=== PATIENT | female | born 1955 | race Caucasian/White ===

== ENCOUNTER 2024-09-18 09:32 | Outpatient (AMB) | payer MEDICAID, SELFPAY ==
[2024-09-18 09:45] VITALS: BP 123/64; PULSE 78; RESP 18; TEMP 36; O2SAT 99; BMI 26.6
--- NOTE | 2024-09-18 09:45 | GYNCLNT_ITS ---
Vital Signs 09/18/24 09:45 Height 1.52 m Height Method Stated Weight 61.745 kg Weight Measurement Method Standing Scale BMI 26.6 BP 123/64 Blood Pressure Source Automatic Cuff Blood Pressure Location Left Upper Arm Position Sitting Respiration 18 Pulse 78 Pulse Source Monitor Temp 96.8 F Temp Source Oral Pulse Oximetry (%) 99 Oxygen Delivery Method Room Air Allergies/Home Meds Allergies & Medications Allergies No Known Allergies Allergy (Verified 09/18/24 09:46) Medication Reconciliation [id number]-[id number]-[id number] 500 mg-60 mg-15 mg tablet (Midol Complete) 2 tab PO Q6H PRN Pain 11/04/20 [History Confirmed 09/18/24] cholecalciferol (vitamin D3) 50 mcg (2,000 unit) capsule (Vitamin D3) 50 mcg PO QDAY 11/04/20 [History Confirmed 09/18/24] cyclobenzaprine 5 mg tablet 5 mg PO HS 11/04/20 [History Confirmed 09/18/24] diclofenac potassium 50 mg tablet 50 mg PO BID 11/04/20 [History Confirmed 09/18/24] multivitamin,yr-mebp-pqshlcwh 1 tab PO DAILY 11/04/20 [History Confirmed 09/18/24] omeprazole 20 mg tablet,delayed release 20 mg PO QDAY 11/04/20 [History Confirmed 09/18/24] ondansetron 4 mg disintegrating tablet 4 mg PO Q6H PRN Nausea 11/04/20 [History Confirmed 09/18/24] vitamin B complex 1 cap PO QDAY 11/04/20 [History Confirmed 09/18/24] Intake Visit Data Collection New Patient or Established: Established Patient (seen at [facility] within 3 years) Reason for Visit:: SPEEDY Seen by Clinical Staff ONLY (RN/MA): No Thinner Sprayer Required: No Do You Feel Safe at Home: Yes Authorities Contacted: N/A PCP or OBGYN visit in last 3 months: No Hx Now: No Are you currently on any form of Control: No Pain Present Currently: No Pain Scale Used: York-Jhaveri/Numerical Pain scale:: 0 Smoking Status Smoking Status: Never smoker 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 1. Little interest or pleasure in doing things: not at all 2. Feeling down, depressed, or hopeless: not at all Total score: 0 PHQ-9 3. Trouble falling or staying asleep, or sleeping too much: Not at all 4. Feeling tired or having little energy: Not at all 5. Poor appetite or overeating: Not at all 6. Feeling bad about yourself - or that you are a failure or have let yourself or your family down: Not at all 7. Trouble concentrating on things, such as reading the newspaper or watching television: Not at all 8. Moving or speaking so slowly that other people could have noticed? - Or the opposite - being so fidgety or restless that you have been moving around a lot more than usual: not at all 9. Thoughts that you would be better off or of hurting yourself in some way: Not at all Total score: 0 If you checked off any problems, how difficult have these problems made it for you to do your work, take care of things at home, or get along with other people?: not difficult at all Source: Developed by Drs. Miguel Angel Rondon, Dasha Chung, Franco Brito and colleagues, with an educational florencio from [employer]. Depression screen completed yes Social History Living Situation History Marital Status: Lives With: Family Housing: House Housing Other:: pt lives with her dtr Tobacco History Smoking Status: Never smoker Alcohol History Alcohol Intake: Current Alcohol Intake Frequency: holidays/special occasions only Domestic Abuse History Do You Feel Safe at Home: Yes Past Medical History Past Medical History Have you ever been diagnosed with any of the following: Neurological Problems Seizures: No Cardiology Problems Congestive Heart Failure: No Valvular Heart Disease: No Edema: No Cellulitis: No Varicose Veins: No Respiratory Problems Chronic Obstructive Pulmonary Disease (COPD): No Tuberculosis: No Pulmonary Embolism: No Sleep Apnea: No Stomache/Intestinal Problems Hepatitis: No Gastroesophageal Reflux Disease: Yes (TAKES PO PRN) Genital/Urinary Problems Renal Disease: No Reproductive Problems Previous Pregnancies: Yes (X9) Endocrine Problems Diabetes Mellitus Type 1: No Diabetes Mellitus Type 2: No Other Problems Hospitalization: No Shingles: No Falls: No Blood Transfusions: No Blood Transfusion Reaction: No Anesthesia Reactions: No Chemotherapy: No Radiation Therapy: No MRSA: No Chicken Pox: No Measles: No Mumps: No Cancer: No Surgical History Pacemaker: No History of Present Illness HPI Narrative Chief Complaint Mobile something like a little ball or pouch in vaginal area within the last week, urinary leakage and difficulty stopping urination, redness in belly button, numbness in one leg History of Present Illness Radhika Rivas Sr. presents with concerns of a pelvic bulge and urinary symptoms. Within the last week, she noticed a little ball or pouch when touching herself, which she was able to tuck back in. Prior to this, she experienced a little shock sensation. The patient reports urinary leakage and difficulty urinating. She describes feeling like she urinated but couldn't stop, which she initially attributed to a previous surgery. Associated symptoms include redness in the belly button and numbness in one leg. The patient denies increased leakage with coughing, sneezing, or laughing, stating it just happens. Additionally, the patient mentions concerns about cholesterol management and yearly exams, which have been previously managed by another provider named Juan R. Medical History - Hypercholesterolemia, managed with regular check-ups Surgical History - Unspecified surgery in the recent past, possibly related to urinary issues Social History - Living Situation: Lives with mother Review of Systems Skin: Positive for redness in the belly button. Genitourinary: Positive for urinary leakage, difficulty stopping urination. Negative for increased urinary leakage with coughing, sneezing, or laughing. Musculoskeletal: Positive for feeling a little ball or pouch in pelvic area. Neurological: Positive for numbness in one leg, feeling of little shock prior to noticing bulge. Review of Systems Review of Systems Systems Reviewed: All systems reviewed, normal except as documented Exam General Limitations: no limitations General Appearance: alert, in no apparent distress, comfortable, cooperative, healthy appearing, well developed and well groomed Head Head exam: atraumatic, normocephalic and normal inspection Chest Chest inspection: Present normal inspection and symmetric chest wall rise Abdominal Abdominal exam: Present soft and normal bowel sounds Abdominal tenderness: Present severe (Redness noted in the belly button.) External exam: Present other (Palpation reveals bladder prolapse. Uterus not descending. Patient reports pain on palpation of prolapsed area.) Psych Psychiatric exam: Present normal affect and normal mood Skin Skin exam: Present warm, dry, intact and normal color Assessment & Plan Diagnosis / Problem List (1) Encounter for screening mammogram for malignant neoplasm of breast: Status: Acute (2) SPEEDY (stress urinary incontinence, female): Status: Acute (3) Menopause: Status: Acute Plan Radhika Rivas Sr. presents with a recent onset of a palpable vaginal bulge, urinary symptoms, and associated sensations, suggesting pelvic organ prolapse. Suspected Bladder Prolapse (Cystocele) Assessment: Patient reports feeling a little ball or pouch in the vaginal area within the last week, which she was able to manually reduce. She also experienced urinary symptoms, including a sensation of incomplete bladder emptying and difficulty stopping urination. On examination, a bladder prolapse was identified, with the prolapsed portion extending below the level of the urethra. The uterus was not prolapsed. These findings are consistent with a cystocele, likely grade 2 or 3 based on the ability to palpate the prolapse at the vaginal introitus. Plan: - Refer to urology (Dr. Herr) for urodynamic testing to assess bladder function and determine the specific area of weakness - Schedule vaginal surgery for cystocele repair - Procedure to be performed jointly with Dr. Herr - Surgical plan includes vaginal incision, tissue trimming, and reinforcement of vaginal wall support using dissolvable sutures (no mesh) - Informed consent: Discussed risks, benefits, and alternatives with patient - Order pelvic ultrasound to further evaluate pelvic organ anatomy - Obtain urine culture to rule out urinary tract infection - Schedule follow-up after completion of diagnostic studies to review results and finalize surgical plan Preventive Care Assessment: Patient is due for routine preventive care, including breast cancer screening. Plan: - Generate order for screening mammogram - Patient to schedule mammogram appointment at facility downstairs - Coordinate with Dr. Pete for ongoing cholesterol management and yearly physical exams Abdominal and Leg Symptoms Assessment: Patient reports redness in the umbilical region and numbness in one leg. These symptoms require further evaluation to determine their etiology and potential relationship to the pelvic organ prolapse or other underlying conditions. Plan: - Perform focused physical examination of the abdomen and legs at next visit - Consider additional imaging or referrals based on examination findings Advanced Care Planning Advance care planning discussed with:: patient Office Procedures OB Clinic LOC & Office Proc's Nursing/Assessment Patient Status: Established Patient OB Clinic Nursing Assessment: BP Monitoring, Medication Reconciliation, Update PMH in EMR and Vital Signs OB Clinic Coordination of Care: Consent,records obtained, informed consent, Education Simp Pt/Fam, Lab and Imaging orders and Staff clarify orders Miscellaneous Interventions: Pelvic/Pap Smear Set up Established Patient Charge Established Patient Point Assignment: 110 Established Patient Point Charge: EP Level 3 (80-115)
== END 2024-09-18 10:07 | disposition home or self-care (01) ==
LOC: HODSOBC 09:32
PROVIDERS: PCP Obstetrics & Gynecology; Referring Provider Obstetrics & Gynecology; Supervising Provider Obstetrics & Gynecology; Visit Provider Obstetrics & Gynecology
DX: Z12.31 Encounter for screening mammogram for malignant neoplasm of breast (principal); N39.3 Stress incontinence (female) (male); Z78.0 Asymptomatic menopausal state; E78.00 Pure hypercholesterolemia, unspecified
CPT/HCPCS: 99213; G0463

== ENCOUNTER 2025-05-29 09:49 | Outpatient (AMB) | payer MEDICAID, SELFPAY ==
--- NOTE | 2025-05-29 10:08 | GYNCLNT_ITS ---
Vital Signs 05/29/25 10:09 Height 1.52 m Height Method Stated Weight 62.256 kg Weight Measurement Method Standing Scale BMI 26.9 BP 127/75 Blood Pressure Source Automatic Cuff Blood Pressure Location Left Upper Arm Position Sitting Respiration 18 Pulse 68 Pulse Source Monitor Temp 97.3 F Temp Source Temporal Artery Scan Pulse Oximetry (%) 95 Oxygen Delivery Method Room Air Allergies/Home Meds Allergies & Medications Allergies No Known Allergies Allergy (Verified 05/29/25 11:20) Medication Reconciliation zweaswkjbvgun-noheewsk-qykchfbyry 500 mg-60 mg-15 mg tablet (Midol Complete) 2 tab PO Q6H PRN Pain 11/04/20 [History Confirmed 05/29/25] cholecalciferol (vitamin D3) 50 mcg (2,000 unit) capsule (Vitamin D3) 50 mcg PO QDAY 11/04/20 [History Confirmed 05/29/25] cyclobenzaprine 5 mg tablet 5 mg PO HS 11/04/20 [History Confirmed 05/29/25] diclofenac potassium 50 mg tablet 50 mg PO BID 11/04/20 [History Confirmed 05/29/25] multivitamin,vp-smbn-vhptccaj 1 tab PO DAILY 11/04/20 [History Confirmed 05/29/25] omeprazole 20 mg tablet,delayed release 20 mg PO QDAY 11/04/20 [History Confirmed 05/29/25] ondansetron 4 mg disintegrating tablet 4 mg PO Q6H PRN Nausea 11/04/20 [History Confirmed 05/29/25] vitamin B complex 1 cap PO QDAY 11/04/20 [History Confirmed 05/29/25] Intake Visit Data Collection New Patient or Established: Established Patient (seen at [facility] within 3 years) Reason for Visit:: FOLLOW UP Seen by Clinical Staff ONLY (RN/MA): No Superintendent Nonselling Required: No Do You Feel Safe at Home: Yes Authorities Contacted: N/A PCP or OBGYN visit in last 3 months: Yes Date of Last PCP or OBGYN visit: 09/18/24 Hx Now: No Are you currently on any form of Control: No Pain Present Currently: No Pain Scale Used: York-Jhaveri/Numerical Pain scale:: 0 Smoking Status Smoking Status: Never smoker Immunizations Flu Vaccine in the Last 12 Months: No Flu Vaccine Exclusion Criteria: No Exclusion Criteria MEDICAL ADMINISTRATIVE: Past Medical History Past Medical History: No Hx Neurological Disorders, No Hx Cardiac Disorders, No Hx Cancer, No Hx Blood Disorders, Yes Hx Gastrointestinal Disorders, No Hx Renal Disease, No Hx Diabetes Mellitus Type 1 and No Hx Diabetes Mellitus Type 2 Questionnaires Covid-19 Vaccine Questionnaire Has patient been vacinated for Covid-19 Have you been vacinated for Covid-19: No PHQ-9 PHQ-2 Over the last 2 weeks, how often have you been bothered by any of the following problems? 1. Little interest or pleasure in doing things: not at all 2. Feeling down, depressed, or hopeless: not at all Total score: 0 PHQ-9 3. Trouble falling or staying asleep, or sleeping too much: Not at all 4. Feeling tired or having little energy: Not at all 5. Poor appetite or overeating: Not at all 6. Feeling bad about yourself - or that you are a failure or have let yourself or your family down: Not at all 7. Trouble concentrating on things, such as reading the newspaper or watching television: Not at all 8. Moving or speaking so slowly that other people could have noticed? - Or the opposite - being so fidgety or restless that you have been moving around a lot more than usual: not at all 9. Thoughts that you would be better off or of hurting yourself in some way: Not at all Total score: 0 If you checked off any problems, how difficult have these problems made it for you to do your work, take care of things at home, or get along with other people?: not difficult at all Source: Developed by Drs. Miguel Angel Rondon, Dasha Chung, Franco Brito and colleagues, with an educational florencio from [employer]. Depression screen completed yes Social History Living Situation History Marital Status: Lives With: Family Housing: House Housing Other:: pt lives with her dtr Tobacco History Smoking Status: Never smoker Second Hand Smoke Exposure: No Alcohol History Alcohol Intake: Current Alcohol Intake Frequency: holidays/special occasions only Domestic Abuse History Do You Feel Safe at Home: Yes History of Present Illness HPI Narrative Radhika Rivas Sr. presents with anterior and posterior prolapse on referral from her urologist to discuss prolapse repair options. She has been experiencing recurrent urinary tract infections, with episodes occurring in September, November, February, and April of this year, representing three infections in the last seven months. She reports associated symptoms of feeling lightheaded and experiencing some anxiety. The patient also experiences back pain in association with these infections. She admits she could be drinking more water than she currently does. Additionally, the patient reports intermittent side pain and believes she may be developing arthritis in her hands. She experiences occasional dizziness, though she describes this as happening now and then rather than frequently. She has a history of endoscopy. The patient has been taking Bactrim or Cipro for UTI treatment in February, and received an antibiotic course in September for UTI treatment. She takes cranberry supplement [id number]. She is a 70-year-old female. ROS: Positive for lightheadedness occurring occasionally, side pain, arthritis-like symptoms in hands, and anxiety symptoms. Diagnostic Test Results and Labs: - Urinalysis dipstick (05-29-2025): Negative for nitrites and bacteria - Urine culture (05-29-2025): Sent (results pending) - Urinalysis (November 2024): Positive WBC - UTI (September 2024): Treated - UTI (February 2025): Treated - UTI (April 2025) Exam General General Appearance: alert, in no apparent distress and healthy appearing Head Head exam: atraumatic Neck Neck exam: Present normal inspection and trachea midline Chest Chest inspection: Present normal inspection and symmetric chest wall rise External exam: Present normal external exam; Absent tenderness Neuro Neurological exam: Present oriented X3 Psych Psychiatric exam: Present normal affect and normal mood Office Procedures OBC Clinic LOC & Office Proc's Nursing/Assessment Patient Status: Established Patient OB Clinic Nursing Assessment: Medication Reconciliation, Update PMH in EMR and Vital Signs OB Clinic Coordination of Care: Complex Care and Chronic Disease 1-5, Education Complex Pt/Fam, Consent,records obtained, informed consent, Lab and Imaging orders, Results/Orders obtained and Staff clarify orders Established Patient Charge Established Patient Point Assignment: 110 Established Patient Point Charge: EP Level 3 (80-115) Assessment & Plan Diagnosis / Problem List (1) History of recurrent UTI (urinary tract infection): Status: Acute (2) Menopause: Status: Acute (3) SPEEDY (stress urinary incontinence, female): Status: Acute Plan Anterior and Posterior Prolapse: - Anterior prolapse with bladder wall prolapsing and posterior prolapse. - Patient referred from urologist to discuss prolapse repair options. - Three surgical options discussed: simple anterior-posterior repair (not recommended due to 1-2 year relief before recurrence), uterosacral suspension procedure, and sacrocolpopexy using dissolvable mesh (gold standard with >90% success rate). Plan: - Referral to urogynecology for surgical consultation. - Create referrals to Dr. Higinio Clinton at [facility] and doctor in [place] at [facility]. - Insurance verification through [employer] for both referral options. - Patient education materials provided for home review. - No urgency for surgical timing - can wait 6 months to 1 year. Recurrent Urinary Tract Infections: - History of recurrent UTIs with 3 episodes in last 7 months. - Current urine dipstick negative for nitrites and bacteria. - Recurrent UTIs can lead to bacterial biofilm formation causing systemic symptoms including back pain, dizziness, and anxiety. Plan: - Send urine culture today. - Start ciprofloxacin suppressive therapy: 5 days twice daily initially, then once daily maintenance. - Continue suppressive antibiotics until urogynecology consultation and surgical repair. - Increase fluid intake. - Start cranberry supplement. - Repeat culture and antibiotic cycles as needed to ensure infection clearance. Side Pain and Possible Arthritis: - Side pain likely bowel-related, possibly from gas pocket or stool backup. - Reports possible arthritis in hands. - Issues outside scope of gynecologic care. Plan: - Referral to internal medicine for evaluation of side pain, possible arthritis, reflux, and joint pains. - General medical checkup recommended for dizziness evaluation including blood pressure assessment. - Follow-up appointment scheduled for June 23 for pap smear and follow-up visit. Advanced Care Planning Advance care planning discussed with:: patient
[2025-05-29 10:09] VITALS: BP 127/75; PULSE 68; RESP 18; TEMP 36.3; O2SAT 95; BMI 26.9
== END 2025-05-29 11:00 | disposition home or self-care (01) ==
LOC: HODSOBC 09:49
PROVIDERS: Supervising Provider Obstetrics & Gynecology; Visit Provider Obstetrics & Gynecology
DX: N39.3 Stress incontinence (female) (male) (principal); N81.10 Cystocele, unspecified; N81.6 Rectocele; Z87.440 Personal history of urinary (tract) infections; Z78.0 Asymptomatic menopausal state
CPT/HCPCS: 99213; G0463

== ENCOUNTER → 2025-06-11 | Outpatient (CLI) | payer MEDICAID, SELFPAY ==
--- NOTE | 2025-06-11 08:30 | XR_ITS ---
Examination: Screening digital mammography, bilateral Computer aided detection 3-D breast Tomosynthesis, bilateral Date and time of exam: 06/11/2025, 8:42 a.m. Comparisons: 10/28/2023 Indications: Screening Technique: Nonmagnified MLO, CC views of the breasts to been obtained, reconstructed from 3-D Tomosynthesis images. R2 computer aided detection program utilized for evaluation of suspicious masses and/or abnormal calcifications. 3-D Tomosynthesis images obtained. Technologist: Findings: There are scattered areas of fibroglandular density. No evidence of abnormal masses or suspicious calcifications. Impression: BI-RADS category 1: Negative findings (within normal) Recommend 1 year follow-up mammogram
== END | disposition home or self-care (01) ==
LOC: CDIM 08:34
PROVIDERS: Referring Provider Physician Assistant; Visit Provider Physician Assistant
DX: Z12.31 Encounter for screening mammogram for malignant neoplasm of breast (principal); R92.313 Mammographic fatty tissue density, bilateral breasts
CPT/HCPCS: 77063; 77067